=== PATIENT | male | born 1975 | race Caucasian/White ===

== ENCOUNTER 2019-08-27 18:40 | Emergency (ER) | payer MEDICAID, SELFPAY ==
--- NOTE | 2019-08-27 18:48 | ED.UPPEXIN ---
HPI - Extremity Injury (Upper) General Chief Complaint: Extremity Injury, Upper Stated Complaint: swelling in arm Time Seen by Provider: 08/27/19 18:42 Source: patient and RN notes reviewed Mode of arrival: ambulatory Limitations: no limitations History of Present Illness HPI narrative: patient has swelling and redness of his left elbow. He has been poking at it with a needle at home and trying to squeeze stuff out of it. Says he has only been able to get out some clear fluid. complaint: injury to: left and elbow Onset (ago): day(s) (1) Other injuries: none Handedness: right Severity: moderate Relieving factors: none Exacerbating factors: movement of extremity Related Data Allergies Allergy/AdvReac Type Severity Reaction Status Date / Time No Known Allergies Allergy Verified 08/27/19 19:10 Review of Systems Constitutional: Constitutional: Reports chills Eyes: Eyes: Reports no additional eye complaints ENT: Reports system reviewed and no additional complaints, except as documented Cardiovascular: Cardiovascular: Reports no additional cardiovascular complaints Respiratory: Respiratory: Reports no additional respiratory complaints, Denies cough, Denies dyspnea and Denies wheezing Gastrointestinal: Gastrointestinal: Reports no additional gastrointestinal complaints, Denies diarrhea, Denies nausea and Denies vomiting PMFSH Past Medical History Medical History (Updated 08/27/19 @ 19:22 by Keo Guerin MD) No active medical problems Surgical History Surgical History (Updated 08/27/19 @ 19:22 by Keo Guerin MD) History of tonsillectomy and adenoidectomy Hx of tympanostomy tubes Social History Social History (Updated 08/27/19 @ 19:23 by Keo Guerin MD) Smoking packs per day: 1 Smoking cigarettes per day: 20.0 Smoking status: Current every day smoker Tobacco type: cigarettes Alcohol intake: current Alcohol use details: occasional Substance use: former Last use: 14 months Exam Const: General: healthy appearing and no acute distress Nutritional Appearance: well nourished Orientation/consciousness: patient oriented x3 HENMT: Head: normal to inspection Ears: external ears normal General nose exam: Normal external nose present Face and sinus: normal facial exam Mouth: Yes lip normal Eyes: Conjunctivae: conjunctivae normal Pupils: Equal, round and reactive pupils present EOM: EOMs intact bilaterally Neck: Neck: normal visual inspection Resp: Effort & Inspection: normal respiratory effort Auscultation: clear to auscultation bilaterally Cardio: Rate: regular rate Rhythm: regular rhythm GI: Inspection: non-distended GI Palp: Yes Soft to palpation Auscultation: normal bowel sounds Back/Spine/Pelvis: Cervical Spine: cervical ROM normal Thoracic/Lumbar Spine: thoraco-lumbar ROM normal Neuro: General: patient oriented x3, moves all extremities and no focal motor deficits Speech: normal speech Gait exam (Neuro): Normal gait present Extrem: General: no pedal edema Left upper extremity: elbow/forearm tenderness of the olecranon, swelling of the olecranon, normal ROM and warmth of the olecranon bursa Psych: Appearance: grossly normal Mental Status: mental status grossly normal Affect: normal affect Attitude: cooperative Thought content: Yes Normal thought content present Course Vital Signs Vital signs: Vital Signs Temperature 38.0 C H 08/27/19 18:49 Pulse Rate 100 08/27/19 18:49 Respiratory Rate 18 08/27/19 18:49 Blood Pressure 139/81 08/27/19 18:49 Pulse Oximetry 94 08/27/19 18:49 Temperature 38.0 C H 08/27/19 18:49 Pulse Rate 100 08/27/19 18:49 Respiratory Rate 18 08/27/19 18:49 Blood Pressure 139/81 08/27/19 18:49 Pulse Oximetry 94 08/27/19 18:49 Procedures Abscess I/D upper extremity: Date of Incision: 08/27/19 Time of Incision: 19:05 Side (if applicable): left Local Anesthetic: lidoca
[2019-08-27 18:49] VITALS: BP 139/81; PULSE 100; RESP 18; TEMP 38; O2SAT 94
--- NOTE | 2019-08-31 17:34 | PC.NURSE ---
Culture reports show that pt is being treated with appropriate antibiotics.
== END 2019-08-27 19:26 | disposition home or self-care (01) ==
PROVIDERS: Emergency Provider Emergency Medicine
DX: L02.414 Cutaneous abscess of left upper limb (principal)
CPT/HCPCS: 10060; 87070; 87077; 87186; 87205; 99283

== ENCOUNTER 2024-02-03 12:27 | Emergency (ER) | payer OTHER, SELFPAY ==
[2024-02-03 12:28] VITALS: BP 140/98; PULSE 94; RESP 18; TEMP 36.4; O2SAT 100
[2024-02-03 12:38] LABS: Add Urine Microscopic? NO; Appearance Urine Clear (Clear); Bilirubin Urine Negative (Negative); Blood Urine Negative (Negative); Color Urine Yellow (Yellow); Glucose Urine UA Negative (Negative); Ketones Urine Negative (Negative); Leukocyte Esterase Ur Negative LEU/UL (Negative); Nitrate Urine Negative (Negative); Protein Urine Negative (Negative); Specific Grav Ur >= 1.030 (1.010-1.020); Urobilinogen Urine 0.2 mg/dL (0.2-1.0); pH Urine 5.5 (5.0-8.0)
--- NOTE | 2024-02-03 12:46 | ED.MALEGU ---
HPI - Male Genitourinary General Chief complaint: Urogenital-Male Stated complaint: uti Time Seen by Provider: 02/03/24 12:28 Source: patient Mode of arrival: ambulatory Limitations: no limitations History of Present Illness HPI Narrative: this is a 48-year-old male with a history of BPH presents with cloudy urine with some file smelling odor with urinary hesitancy with no flank pain no hematuria no fever chills does have suprapubic tenderness with palpation. Onset (ago): day(s) Duration: intermittent Severity: mild Related Data Allergies Allergy/AdvReac Type Severity Reaction Status Date / Time No Known Allergies Allergy Verified 02/03/24 12:32 Review of Systems Review of Systems: All systems reviewed & are unremarkable except as noted in HPI and below PMFSH Past Medical History Medical History No active medical problems Surgical History Surgical History History of tonsillectomy and adenoidectomy Hx of tympanostomy tubes Social History Social History Smoking packs per day: 1 Smoking cigarettes per day: 20.0 Smoking status: Current every day smoker Tobacco type: cigarettes Alcohol intake: current Alcohol use details: occasional Substance use: former Last use: 14 months Exam Const: General: healthy appearing and no acute distress Nutritional Appearance: well nourished Limitations: no limitations Chest: Chest palpation & inspection: normal inspection of the chest Resp: Effort & Inspection: normal respiratory effort Auscultation: clear to auscultation bilaterally Cardio: Rate: regular rate Rhythm: regular rhythm GI: GI Palp: Yes Soft to palpation : General: Yes no CVA tenderness Other: Suprapubic tenderness with palpation Urinary Catheter: Urinary Catheter: urine cloudy Back/Spine/Pelvis: Back: no CVA tenderness Skin: General skin exam: normal color Rashes: no rashes Course Course Emergency Course: urinalysis performed reviewed with patient patient with history of BPH will treat with some Bactrim and will administer a dose p.o. here in the ER. Vital Signs Vital signs: Vital Signs Temperature 36.4 C 02/03/24 12:28 Pulse Rate 94 02/03/24 12:28 Respiratory Rate 18 02/03/24 12:28 Blood Pressure 140/98 H 02/03/24 12:28 Pulse Oximetry 100 02/03/24 12:28 Oxygen Delivery Room Air 02/03/24 12:28 Temperature 36.4 C 02/03/24 12:28 Pulse Rate 94 02/03/24 12:28 Respiratory Rate 18 02/03/24 12:28 Blood Pressure 140/98 H 02/03/24 12:28 Pulse Oximetry 100 02/03/24 12:28 Oxygen Delivery Room Air 02/03/24 12:28 MDM - Male Genitourinary Lab Data Labs: Lab Results 02/03/24 Range/Units 12:31 Urine Color Yellow (Yellow) Urine Appearance Clear (Clear) Urine pH 5.5 (5.0-8.0) Ur Specific [place] >= 1.030 H (1.010-1.020) Urine Protein Negative (Negative) Urine Glucose (UA) Negative (Negative) Urine Ketones Negative (Negative) Ur Blood (Man) Negative (Negative) Urine Nitrate Negative (Negative) Urine Bilirubin Negative (Negative) Urine Urobilinogen 0.2 (0.2-1.0) mg/dL Leukocyte Esterase Rfl Negative (Negative) GLADIS/UL Critical Care Time Critical Care Time Critical Care Time: No Discharge Plan Discharge Clinical Impression: Prostatitis, BPH (benign prostatic hyperplasia) Patient Disposition: Home, Self-Care Condition: Stable Instructions: Antibiotic Form, Prostatitis (ED), Enlarged Prostate (BPH) (ED) Additional Instructions: advised to take medication as prescribed and follow up with primary within a week further evaluation and treatment. Prescriptions: New tamsulosin [Flomax] 0.4 mg capsule 0.4 mg PO DAILY Qty: 14 0RF sulfamethoxazole-trimethoprim [Bactrim DS] 800-160 mg tablet 1 tablet PO Q12H Qty: 14 0RF Follow-up/Referrals: UNKNOWN,DOCTOR [Primary Care Provider] - Time of Disposition: 12:52
[2024-02-03] MEDS: SULFAMETHOXAZOLE/TRIMETHOPRIM 800/160 MG DS TABLET 1 TAB PO (12:52)
--- NOTE | 2024-02-03 13:03 | ED_ITS ---
HPI - Skin/Abscess/Foreign Bdy General Chief complaint: Urogenital-Male Stated complaint: uti Time Seen by Provider: 02/03/24 12:28 Source: patient Mode of arrival: ambulatory Limitations: no limitations History of Present Illness complaint: laceration Onset (ago): day(s) Severity: mild Related Data Allergies Allergy/AdvReac Type Severity Reaction Status Date / Time No Known Allergies Allergy Verified 02/03/24 12:32 Review of Systems Review of Systems: All systems reviewed & are unremarkable except as noted in HPI and below PMFSH Past Medical History Medical History No active medical problems Surgical History Surgical History History of tonsillectomy and adenoidectomy Hx of tympanostomy tubes Social History Social History Smoking packs per day: 1 Smoking cigarettes per day: 20.0 Smoking status: Current every day smoker Tobacco type: cigarettes Alcohol intake: current Alcohol use details: occasional Substance use: former Last use: 14 months Exam Const: General: healthy appearing, no acute distress and alert Nutritional Appearance: well nourished Orientation/consciousness: patient oriented x3 Limitations: no limitations Resp: Effort & Inspection: normal respiratory effort Auscultation: clear to auscultation bilaterally Cardio: Rate: regular rate Rhythm: regular rhythm Urinary Catheter: Urinary Catheter: patent and draining Back/Spine/Pelvis: Back: no CVA tenderness Skin: Wounds: wounds noted Other: Avulsion injury to the radial surface of his left thumb Neuro: General: patient oriented x3 and moves all extremities Extrem: General: normal to inspection and no clubbing, cyanosis or edema Course Vital Signs Vital signs: Vital Signs Temperature 36.4 C 02/03/24 12:28 Pulse Rate 94 02/03/24 12:28 Respiratory Rate 18 02/03/24 12:28 Blood Pressure 140/98 H 02/03/24 12:28 Pulse Oximetry 100 02/03/24 12:28 Oxygen Delivery Room Air 02/03/24 12:28 Temperature 36.4 C 02/03/24 12:28 Pulse Rate 94 02/03/24 12:28 Respiratory Rate 18 02/03/24 12:28 Blood Pressure 140/98 H 11/09/24 12:28 Pulse Oximetry 100 02/03/24 12:28 Oxygen Delivery Room Air 02/03/24 12:28 MDM - Skin/Abscess/Foreign Bdy Lab Data Labs: Lab Results 02/03/24 Range/Units 12:31 Urine Color Yellow (Yellow) Urine Appearance Clear (Clear) Urine pH 5.5 (5.0-8.0) Ur Specific [place] >= 1.030 H (1.010-1.020) Urine Protein Negative (Negative) Urine Glucose (UA) Negative (Negative) Urine Ketones Negative (Negative) Ur Blood (Man) Negative (Negative) Urine Nitrate Negative (Negative) Urine Bilirubin Negative (Negative) Urine Urobilinogen 0.2 (0.2-1.0) mg/dL Leukocyte Esterase Rfl Negative (Negative) GLADIS/UL Critical Care Time Critical Care Time Critical Care Time: No Discharge Plan Discharge Clinical Impression: Prostatitis Qualifiers: Prostatitis type: acute Qualified Code(s): N41.0 - Acute prostatitis BPH (benign prostatic hyperplasia) Qualifiers: Lower urinary tract symptom presence: symptoms present Lower urinary tract symptom detail: unspecified Qualified Code(s): N40.1 - Benign prostatic hyperplasia with lower urinary tract symptoms Patient Disposition: Home, Self-Care Condition: Stable Instructions: Antibiotic Form, Prostatitis (ED), Enlarged Prostate (BPH) (ED) Additional Instructions: advised to take medication as prescribed and follow up with primary within a week further evaluation and treatment. Prescriptions: New tamsulosin [Flomax] 0.4 mg capsule 0.4 mg PO DAILY Qty: 14 0RF sulfamethoxazole-trimethoprim [Bactrim DS] 800-160 mg tablet 1 tablet PO Q12H Qty: 14 0RF Follow-up/Referrals: UNKNOWN,DOCTOR [Primary Care Provider] - Time of Disposition: 12:52
== END 2024-02-03 12:57 | disposition home or self-care (01) ==
LOC: CHSED 13:00
PROVIDERS: Emergency Provider Emergency Medicine
DX: N41.9 Inflammatory disease of prostate, unspecified (principal); N40.0 Benign prostatic hyperplasia without lower urinary tract symptoms; F17.210 Nicotine dependence, cigarettes, uncomplicated
CPT/HCPCS: 81003; 99283; A9270

== ENCOUNTER 2024-09-30 08:07 | Emergency (ER) | payer OTHER, SELFPAY ==
[2024-09-30] VITALS (13 sets, daily range): BP systolic 100–131; BP diastolic 62–85; PULSE 66–97; RESP 11–20; TEMP 36.8; O2SAT 90–100
--- NOTE | ~2024-09-30 | CT_ITS ---
EXAM: CTA chest PE protocol - 09/30/2024 9:00 CDT History: 49 years old Male with chest pain, SOB, CA hsx TECHNIQUE: CTA of the chest with contrast, according to pulmonary embolism protocol. Reformatted cor onal, sagittal, and 3-D MIP images were obtained. 100 cc of Optiray 350 were used for the study. Auto matic exposure control was used for this study. COMPARISON: None available. FINDINGS: EXAM QUALITY: Adequate visualization of the pulmonary arteries to the lobar level. PULMONARY ARTERIAL VASCULATURE: No evidence of pulmonary embolism in main and lobar pulmonary arterie s. Limited evaluation for segmental and peripheral pulmonary arteries due to suboptimal contrast bolu s timing. VISUALIZED LOWER NECK: Thyroid gland appears normal. No supraclavicular lymphadenopathy. AIRWAYS: Patent centrally. LUNGS and PLEURA: Scattered areas of bilateral widespread tree in bed opacities and airspace disease. Findings are concerning for pneumonia. No pleural effusion. MEDIASTINUM and RAMBO: No hilar or mediastinal lymphadenopathy. No mediastinal mass is seen. Esophagus appears normal. HEART AND PERICARDIUM: Cardiac chambers are normal in size. No pericardial fluid or thickening is pre sent. VASCULATURE: Thoracic aorta and pulmonary arteries are normal in caliber. CHEST WALL: No supraclavicular or axillary lymphadenopathy. MUSCULOSKELETAL: No acute osseous abnormality. UPPER ABDOMEN: 7.2 x 7.0 cm hypodense mass in the right hepatic lobe with peripheral discontinuous en hancement. There is another 1.8 cm mass in the left hepatic lobe with similar enhancing patterns. The se cannot be definitely characterized on current single phase examination and may represent hemangiom as. Fat stranding in partially visualized right hepatorenal pouch. Right kidney is not seen. 1. IMPRESSION: 2. No evidence of pulmonary embolism in main and lobar pulmonary arteries. 3. Findings concerning for bilateral pneumonia, as detailed above. 4. Fat stranding in partially visualized right hepatorenal pouch. Right kidney is not seen. Correlat e with patient's history and prior imaging, if available. 5. 7.2 x 7.0 cm hypodense mass in the right hepatic lobe with peripheral discontinuous enhancement. There is another 1.8 cm mass in the left hepatic lobe with similar enhancing patterns. These cannot b e definitely characterized on current single phase examination and may represent hemangiomas.Correlat e with patient's history and prior imaging, if available, otherwise nonemergent four-phase liver CT v ersus MRI can be performed for further evaluation, as clinically indicated. Reviewed, dictated and finalized at location A.
--- NOTE | ~2024-09-30 | XR_ITS ---
EXAM/PROCEDURE: XR chest 2V - 09/30/2024 9:09 CDT HISTORY: 49 years old Male with cp sob, dizzy TECHNIQUE: Two view(s) of the chest. COMPARISON: None available. FINDINGS: LUNGS/ PLEURA: Airspace opacities in bilateral lung bases, right greater than left. Findings are conc erning for pneumonia. Mild perihilar bronchial wall thickening concerning for bronchiolitis. HEART/ MEDIASTINUM: Heart appears normal in size. BONES: No acute osseous abnormality. OTHER: Visualized upper abdomen is unremarkable. IMPRESSION: Findings concerning for pneumonia and bronchiolitis in appropriate clinical settings. Short-term foll ow-up chest radiograph is recommended after appropriate clinical therapy. Reviewed, dictated and finalized at location A. IMPRESSION: Findings concerning for pneumonia and bronchiolitis in appropriate clinical set tings. Short-term follow-up chest radiograph is recommended after appropriate c linical therapy.
--- NOTE | ~2024-09-30 | US_ITS ---
EXAMINATION: US scrotum doppler DATE: 09/30/2024 09:03 INDICATION: Left testicular mass TECHNIQUE: Testicular sonogram utilizing grayscale and Doppler COMPARISON: None. FINDINGS: The right testis measures 4.4 x 2.1 x 2.8 cm. The left testis measures 4.3 x 2.0 x 2.6 cm. Symmetric normal grayscale appearance to both testes. There is normal vascular flow to both testes. The right e pididymis is normal with normal vascular flow. The left epididymis is normal with normal vascular jessica w. There are small bilateral hydroceles. There is also a left varicocele with vessels measuring up to 3 mm which augment with Valsalva. The dilated vessels along with some fat extend cephalad to the bas e of the scrotum which corresponds to the location of the palpable abnormality were no other abnormal masses or fluid collections are identified. IMPRESSION: 1. Left varicocele which may account for the palpable abnormality of concern. No other abnormal mass es identified. 2. Small bilateral hydroceles. Reviewed, dictated and finalized at location A. IMPRESSION: 1. Left varicocele which may account for the palpable abnormality of concern. No other abnormal masses identified. 2. Small bilateral hydroceles.
--- NOTE | 2024-09-30 08:08 | ECG_ITS ---
Test Date: 2024-09-30 08:13:25 Measurements Intervals [place] Rate: 91 P: 9 NV: 148 QRS: 23 QRSD: 89 T: 19 QT: 319 QTc: 394 Interpretive Statements SINUS RHYTHM No previous ECG available for comparison Electronically Signed On 09-30-2024 22:25:07 CDT by Silvano Virk M.D.
--- OUTSIDE RECORDS SUMMARY | 2024-09-30 08:09 | XMS_ITS | Encounter Summary ---
Author Organization [facility] Address [address] [place] [address] Care Team Providers Care Top Hat Body Maker Name Role Phone None, Provider Primary Care Provider Sugey Gilliam MD Primary Care Provider [phone] None, Provider Primary Care Provider Unavaila ble None, Provider Primary Care Provider Unavaila Sugey Weaver MD Primary Care Provider [phone] Encounter Details Date Type Department Care Team (Late st Contact Info) Description 06/10/2017 Abstract [facility] CONVERSION [address] [place] [address] , Generic Conversion, Social History Tobacco Use Types Packs/Day Years Used Date Smoking Tobacco: Never Assessed Sex and Gender Information Value Date Recorded Sex Assigned at Male 07/25/2024 6:51 AM CDT 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 Gender Identity Not on file Sexual Orientation Not on file documented as of this encounter Plan of Treatment Not on file documented as of this encounter Visit Diagnoses Not on filedocumented in this encounter Additional Health Concerns Infection Onset Date Last Indicated Resolved Time 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
--- OUTSIDE RECORDS SUMMARY | 2024-09-30 08:09 | XMS_ITS | Encounter Summary ---
Author Organization [facility] Address [address] [place] [address] Care Team Providers Care Tunnel Kiln Operator Name Role Phone None, Provider Primary Care Provider UnavailSugey Osborn MD Primary Care Provider [phone] None, Provider Primary Care Provider Unavaila ble None, Provider Primary Care Provider Unavaila Sugey Weaver MD Primary Care Provider [phone] Encounter Details Date Type Department Care Team (Late st Contact Info) Description 09/01/2018 Abstract [facility] CONVERSION [address] [place] [address] , Generic Conversion, Social History Tobacco Use Types Packs/Day Years Used Date Smoking Tobacco: Never Assessed Sex and Gender Information Value Date Recorded Sex Assigned at Male 07/25/2024 6:51 AM CDT 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 Gender Identity Not on file Sexual Orientation Not on file documented as of this encounter Plan of Treatment Not on file documented as of this encounter Visit Diagnoses Not on filedocumented in this encounter Additional Health Concerns Infection Onset Date Last Indicated Resolved Time 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
--- OUTSIDE RECORDS SUMMARY | 2024-09-30 08:09 | XMS_ITS | Clinical Summary ---
Author Organization [facility] Address [address] [place] [address] Care Team Providers Care Nutrition Services Manager Name Role Phone Sugey Zamora MD Primary Care Provider [phone] Allergies No known active allergies Medications albuterol sulfate HFA 108 (90 Base) MCG/ACT inhaler Inhale 2 puffs into the lungs every 6 (six) hours as needed for Wheezing. 59.5 g 01/18/2024 Active cloNIDine (CATAPRES) 0.1 MG tablet Take 1 tablet (0.1 mg total) by mouth as needed. 03/12/2024 Active SUBLOCADE 300 MG/1.5ML injection Inject 1.5 mLs (300 mg total) into the skin every 30 (thirty) days. 03/12/2024 Active Active Problems Problem Noted Date Diagnosed Date Kidney lesion 04/18/2024 Lesion of liver 04/18/2024 HTN (hypertension) 04/18/2024 Current every day smoker 04/18/2024 Encounters Date Type Department Care Team Description 07/25/2024 6:31 AM CDT - 07/25/2024 7:34 AM CDT [facility] [address] [place] [address] Dayo Nguyen MD Flank Pain Discharge Disposition: Left Against Medical Advice 07/25/2024 Travel 07/02/2024 2:02 PM CDT - 07/02/2024 4:55 PM CDT [facility] [address] [place] [address] Radha Hatch MD Male Gu Discharge Disposition: Home or Self Care (Routine Discharge) 07/02/2024 Travel from Last 3 Months Family History Medical History Relation Comments Heart Disease Father Hypertension Father Cancer Maternal Grandmother COPD Mother Emphysema Mother Cancer Paternal Grandmother Relation Status Comments Father Maternal Grandmother Mother Paternal Grandmother Social History Tobacco Use Types Packs/Day Years Used Date Smoking Tobacco: Every Day Cigarettes Smokeless Tobacco: Never Tobacco Cessation:Ready to Q uit: Not Asked; Counseling Given: Not Answered Alcohol Use Standard Drinks/Week Comments Not Currently 0 (1 standard drink = 0.6 oz pur e alcohol) AUDIT-C Answer Date Recorded Frequency of Alcohol Consumption Never 10/02/2018 Average Number of Drinks Not on file 019 Frequency of Binge Drinking Not on file 11/2018 Sex and Gender Information Value Date Recorded Sex Assigned at Male 07/25/2024 6:51 AM CDT 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 Gender Identity Not on file Sexual Orientation Not on file Last Filed Vital Signs Vital Sign Reading Time Taken Comments Blood Pressure 147/98 07/25/2024 6:36 AM CDT Pulse 94 07/25/2024 6:36 AM CDT Temperature 37.2 C (98.9 F) 07/25/2024 6:36 AM CDT Respiratory Rate 16 07/25/2024 6:36 AM CDT Oxygen Saturation 99% 07/25/2024 6:45 AM CDT Inhaled Oxygen Concentration - - Weight 100.2 kg (221 lb) 07/25/2024 6:36 AM CDT Height 180.3 cm (5' 11) 07/25/2024 6:36 AM CDT Body Mass Index 30.82 07/25/2024 6:36 AM CDT Plan of Treatment Health Maintenance Due Date Last Done Comments Colorectal Cancer Screening Colonoscopy (10 Years) 1974 Annual Physical 1977 Hepatitis C 1992 DTaP, Tdap and Td Vaccines ( 1 - Tdap) 1993 Hepatitis B Vaccines (1 of 3 - 19+ 3-dose series) 1993 Pneumococcal Vaccine: 50+ Ye ars (1 of 2 - PCV) 1993 COVID-19 Vaccine ( - 2023-2 5 season) 2023 Zoster Vaccines (1 of 2) 2024 Meningococcal B Vaccine Aged Out No l onger eligible based on patient's age to complete this topic Meningococcal Vaccine Aged Out No bakari remigio eligible based on patient's age to complete this topic RSV Immunizations Under 20 Months Aged Out No longer eligible based on patient's age to complete this topic Procedures Procedure Name Priority Date/Time Associated Diagnosis Comments HC URINALYSIS AUTO W/MICRO STAT 07/25/2024 7:[address] ABD+PEL KIDNEY STONE STAT 07/25/2024 7:13 AM CDT COMPREHENSIVE METABOLIC PANEL STAT 07/25/2024 6:50 AM CDT CBC W/DIFF AUTOMATED STAT 07/25/2024 6:50 AM CDT COMPREHENSIVE METABOLIC PANEL STAT 07/02/2024 2:55 PM CDT CBC W/DIFF AUTOMATED STAT 07/02/2024 2:55 PM CDT URINE BACTERIA CULTURE STAT 2:50 PM CDT HC URINALYSIS AUTO W/MICRO STAT 07/02/2024 2:[address] ABD+PEL KIDNEY STONE STAT 07/02/2024 2:36 PM CDT from Last 3 Months Results * URINALYSIS (07/25/2024 7:17 AM CDT) Only the most recent of2 resultswithin the time period is included. COLOR (U) YELLOW 07/25/2024 7:28 AM CDT [facility] TRANSPARENCY CLEAR 07/25/2024 7:28 AM CDT [facility] SPECIFIC GRAVITY (U) 1.020 1.000 - 1.025 07/25/2024 7:28 AM CDT [facility] U PH 6.0 5.0 - 8.0 07/25/2024 7:28 AM CDT [facility] LEUKOCYTES (U) NEGATIVE NEGATIVE 07/25/2024 7:28 AM CDT [facility] NITRITES NEGATIVE NEGATIVE 07/25/2024 7:28 AM CDT [facility] PROTEIN RANDOM (U) NEGATIVE NEGATIVE 07/25/2024 7:28 AM CDT [facility] GLUCOSE (U) NEGATIVE NEGATIVE 07/25/2024 7:28 AM CDT [facility] KETONES MG/DL (U) NEGATIVE NEGATIVE 07/25/2024 7:28 AM CDT [facility] UROBILINOGEN 0.2 <1.0 EU/DL 07/25/2024 7:28 AM CDT [facility] BILIRUBIN (U) NEGATIVE NEGATIVE 07/25/2024 7:28 AM CDT [facility] BLOOD (U) NEGATIVE NEGATIVE 07/25/2024 7:28 AM CDT [facility] WBC/HPF 0-5 0 - 5 /HPF 07/25/2024 7:28 AM CDT [facility] RBC/HPF 0-5 0 - 5 /HPF 07/25/2024 7:28 AM CDT [facility] EPI/LPF RARE /LPF 07/25/2024 7:28 AM CDT [facility] BACTERIA (U) TRACE /HPF 07/25/2024 7:28 AM CDT [facility] OTHER CASTS (U) HYALINE /LPF 7:28 AM CDT [facility] Comment:0-5 URINE SPECIMEN OBTAINED BY CLEAN CATCH PROCEDURE / Unknown 07/25/2024 7:17 AM CDT us Dayo Nguyen MD URINE ORDERABLES Final Resu lt [facility] [address] [place] [address], * CT ABD+PEL KIDNEY STONE (07/25/2024 7:13 AM CDT) Only the most recent of2 resultswithin the time period is included. Anatomical Region Laterality Modality Abdomen Computed Tomogra phy 07/25/2024 7:16 AM CDT Impressions 07/25/2024 7:19 AM CDT IMPRESSION: 1. No evidence of kidney stones or obstructive uropathy next line 2. Lobulated soft tissue mass within the right kidney likely representing a primary malignancy. This is stable in the interval 3. Scattered groundglass opacities throughout the right lung base are likely indicative of an inflammatory process Ordered By: DAYO NGUYEN Interpreted By: Romero Garcia MD, 07/25/2024 7:16 AM Narrative 07/25/2024 7:19 AM CDT [place] [id number] [place] [address] CT ABDOMEN AND PELVIS WITHOUT CONTRAST Clinical history: Right flank pain. Technique: Helical images of the abdomen and pelvis were obtained without contrast. A dose lowering technique was used for this procedure, which may include, but is not limited to, dose reduction technique, automated exposure control, the use of iterative reconstruction, and ALARA (As Low As Reasonably Achievable) / Image Gently techniques. Comparison: July 02, 2024. FINDINGS: Images of the lower thorax demonstrate mild scattered groundglass opacities within the lower right lung suggesting an inflammatory process. The visualized portion of the heart appears normal. Images of the abdomen demonstrate the overall size and morphology of the liver to be within normal limits. No hepatic lesions are observed. No ascites is seen. The gallbladder is present and normally distended. No stones are observed within its lumen and there is no evidence of cholecystitis or biliary obstruction. The pancreas, spleen, and adrenal glands appear grossly normal. The kidneys appears stable. A lobulated soft tissue mass within the lower pole of the right kidney is unchanged in the interval. No stones or hydronephrosis is present. Images of the pelvis demonstrate the urinary bladder to appear normal. The prostate is normal in size. The stomach and small bowel have a normal overall appearance. The terminal ileum appears normal. The colon demonstrates a moderate stool burden with inspissated stool throughout the descending and sigmoid portions as well as the rectum suggesting constipation. No adenopathy or abnormal fluid collections are seen. The bony elements appear normal Procedure Note Romero Garcia MD - 07/25/2024 [facility] [address] [place] [address] CT ABDOMEN AND PELVIS WITHOUT CONTRAST Clinical history: Right flank pain. Technique: Helical images of the abdomen and pelvis were obtained withoutcontrast. A dose lowering technique was used for this procedure, which mayinclude, but is not limited to, dose reduction technique, automatedexposure control, the use of iterative reconstruction, and ALARA (As LowAs Reasonably Achievable) / Image Gently techniques. Comparison: July 02, 2024. FINDINGS: Images of the lower thorax demonstrate mild scattered groundglassopacities within the lower right lung suggesting an inflammatory process.The visualized portion of the heart appears normal. Images of the abdomen demonstrate the overall size and morphology of theliver to be within normal limits. No hepatic lesions are observed. Noascites is seen. The gallbladder is present and normally distended. Nostones are observed within its lumen and there is no evidence ofcholecystitis or biliary obstruction. The pancreas, spleen, and adrenalglands appear grossly normal. The kidneys appears stable. A lobulated soft tissue mass within the lowerpole of the right kidney is unchanged in the interval. No stones orhydronephrosis is present. Images of the pelvis demonstrate the urinary bladder to appear normal. Theprostate is normal in size. The stomach and small bowel have a normal overall appearance. The terminalileum appears normal. The colon demonstrates a moderate stool burden withinspissated stool throughout the descending and sigmoid portions as wellas the rectum suggesting constipation. No adenopathy or abnormal fluid collections are seen. The bony elementsappear normal IMPRESSION: 1. No evidence of kidney stones or obstructive uropathy next line 2. Lobulated soft tissue mass within the right kidney likely representinga primary malignancy. This is stable in the interval 3. Scattered groundglass opacities throughout the right lung base arelikely indicative of an inflammatory process Ordered By: DAYO NGUYEN Interpreted By: Romero Garcia MD, 07/25/2024 7:16 AM us Dayo Nguyen MD CT Final Resul t * (ABNORMAL) COMPREHENSIVE METABOLIC PANEL (07/25/2024 6:50 AM CDT) Only the most recent of2 resultswithin the time period is included. SODIUM S/P/B 136 136 - 145 MMOL/L 07/25/2024 7:12 AM CDT [facility] POTASSIUM S/P/B 4.2 3.5 - 5.1 MMOL/L 07/25/2024 7:12 AM CDT [facility] CHLORIDE S/P/B 100 98 - 107 MMOL/L 07/25/2024 7:12 AM CDT [facility] CO2 28.2 21.0 - 32.0 MMOL/L 07/25/2024 7:12 AM CDT [facility] GLUCOSE 164(H) 70 - 99 MG/DL 07/25/2024 7:12 AM CDT [facility] Comment: FASTING GLUCOSE 100 TO 125 MG/DL IS CONSISTENT WITH IMPAIRED FASTING GLUCOSE. FASTING GLUCOSE >125 MG/DL IS CONSISTENT WITH DIABETES. RANDOM GLUCOSE >200 MG/DL WITH HYPERGLYCEMIC SYMPTOMS IS CONSISTENT WITH DIABETES. PER ADA GUIDELINES BUN 25(H) 6 - 24 MG/DL 07/25/2024 7:12 AM CDT [facility] CREATININE S/P/B 1.39(H) 0.70 - 1.30 MG/DL 07/25/2024 7:12 AM CDT [facility] CALCIUM S/P/B 9.2 8.4 - 10.5 MG/DL 07/25/2024 7:12 AM CDT [facility] BILIRUBIN TOTAL S/P/B 0.9 0.2 - 1.0 MG/DL 07/25/2024 7:12 AM CDT [facility] Comment: THIS ASSAY IS NOT RECOMMENDED FOR PATIENTS UNDERGOING TREATMENT WITH ELTROMBOPAG DUE TO THE POTENTIAL FOR FALSELY ELEVATED RESULTS. ALKALINE PHOSPHATASE S/P/B 141(H) 45 - 115 U/L 07/25/2024 7:12 AM CDT [facility] AST 20 15 - 37 U/L 07/25/2024 7:12 AM CDT [facility] ALT 25 16 - 63 U/L 07/25/2024 7:12 AM CDT [facility] TOTAL PROTEIN S/P/B 7.5 6.4 - 8.2 G/DL 07/25/2024 7:12 AM CDT [facility] ALBUMIN S/P/B 3.9 3.4 - 5.0 G/DL 07/25/2024 7:12 AM CDT [facility] ANION GAP 7.8 5.0 - 15.0 MMOL/L 07/25/2024 7:12 AM CDT [facility] OSMOLALITY (CALC) 290 MOSM/KG 025 7:12 AM CDT [facility] Comment:REFERENCE RANGE NOT ESTABLISHED GFR ESTIMATE 62(L) >89 ML/MIN/1. 73 M2 07/25/2024 7:12 AM CDT [facility] GFR NOTES GFR REFERENCE S: 07/25/2024 7:12 AM CDT [facility] Comment: THE ESTIMATED GFR IS CALCULATED USING THE 2020 CKD-EPI EQUATION. THE FOLLOWING CATEGORIES FOR GRADING RENAL FUNCTION ARE RECOMMENDED BY THE INTERNATIONAL SOCIETY OF NEPHROLOGY (KDIGO 2012 CLINICAL PRACTICE GUIDELINE). G1,NORMAL OR HIGH: >89 ml/min/1.73 m2 G2,MILDLY DECREASED: 60-89 ml/min/1.73 m2 G3A,MILDLY TO MODERATELY DECREASED: 45-59 ml/min/1.73 m2 G3B,MODERATELY TO SEVERELY DECREASED: 30-44 ml/min/1.73 m2 G4,SEVERELY DECREASED: 15-29 ml/min/1.73 m2 G5,KIDNEY FAILURE: <15 ml/min/1.73 m2 07/25/2024 6:50 AM CDT us Dayo Nguyen MD LABORATORY Final Resul t [facility] [address] [place] [address], * (ABNORMAL) CBC W/DIFF AUTOMATED (07/25/2024 6:50 AM CDT) Only the most recent of2 resultswithin the time period is included. WBC 12.98(H) 4.00 - 10.80 x10'3/uL 07/25/2024 6:56 AM CDT [facility] RBC 5.09 4.50 - 6.10 x10'6/uL 07/25/2024 6:56 AM CDT [facility] HGB 13.2 13.0 - 18.0 G/DL 07/25/2024 6:56 AM CDT [facility] HCT 41.0 37.0 - 52.0 % 07/25/2024 6:56 AM CDT [facility] MCV 80.6 78.0 - 100.0 FL 07/25/2024 6:56 AM CDT [facility] MCH 25.9(L) 27.0 - 31.0 PG 07/25/2024 6:56 AM CDT [facility] MCHC 32.2(L) 33.0 - 36.0 G/DL 07/25/2024 6:56 AM CDT [facility] RDW 14.4 11.5 - 14.5 % 07/25/2024 6:56 AM CDT [facility] PLT 264 150 - 350 x10'3/uL 07/25/2024 6:56 AM CDT [facility] MPV 9.5 7.4 - 10.4 FL 07/25/2024 6:56 AM CDT [facility] CBC COMMENT NORMAL REFERENCE RANGE NOT ESTABLISHED FOR THE PROPORTIONAL LEUKOCYTE DIFFERENTIAL. 07/25/2024 6:56 AM CDT [facility] NEUTROPHILS % 87.3 % 07/25/2024 6:56 AM CDT [facility] LYMPHOCYTES % 6.2 % 07/25/2024 6:56 AM CDT [facility] MONOCYTES % 4.9 % 07/25/2024 6:56 AM CDT [facility] EOSINOPHILS % 1.0 % 07/25/2024 6:56 AM CDT [facility] BASOPHILS % 0.2 % 07/25/2024 6:56 AM CDT [facility] IMMATURE GRANS % 0.4 % 07/26/19 6:56 AM CDT [facility] NRBC % 0.0 % 07/25/2024 6:56 AM CDT [facility] ABS. NEUTROPHILS 11.32(H) 1.60 - 8.30 x10'3/uL 07/25/2024 6:56 AM CDT [facility] ABS. LYMPHOCYTES 0.81 0.80 - 4.70 x10'3/uL 07/25/2024 6:56 AM CDT [facility] ABS. MONOCYTES 0.64 0.00 - 1.50 x10'3/uL 07/25/2024 6:56 AM CDT [facility] ABS. EOSINOPHILS 0.13 0.00 - 0.40 x10'3/uL 07/25/2024 6:56 AM CDT [facility] ABS. BASOPHILS 0.03 0.00 - 0.20 x10'3/uL 07/25/2024 6:56 AM CDT [facility] ABS. IMMATURE GRANULOCYTES 0.05(H) 0.00 - 0.03 x10'3/uL 07/25/2024 6:56 AM CDT [facility] ABS. NUCLEATED RBC'S 0.00 0.00 - 0.01 x10'3/uL 07/25/2024 6:56 AM CDT [facility] 07/25/2024 6:50 AM CDT Dayo Nguyen MD LABORATORY Final Resul t [facility] [address] [place] [address], * CULTURE URINE (07/02/2024 2:50 PM CDT) SPEC DESCRIPTION URINE CLEAN CATCH 07/02/2024 3:37 PM CDT [facility] SPECIAL REQUESTS NO SPECIAL REQUEST 07/02/2024 3:37 PM CDT [facility] CULTURE RESULT FEW CONTAMINANTS 06/25 2:01 PM CDT [facility] URINE SPECIMEN OBTAINED BY CLEAN CATCH PROCEDURE / Unknown 07/02/2024 2:50 PM CDT 07/02/2024 4:32 PM CDT us Cherelle Laguna MD MICROBIOLOGY - GENERAL ORDERABLE S Final Result [facility] [address] 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
--- NOTE | 2024-09-30 08:20 | ED_ITS ---
HPI - General Adult General Chief complaint: Chest Pain Stated complaint: cp, sob Time Seen by Provider: 09/30/24 08:09 History of Present Illness HPI narrative: 49-year-old male presented to the emergency department for evaluation for chest pain that started last night. Patient states that is left-sided chest pain and patient does report associated shortness of breath. Patient does have a family history of coronary artery disease but denies any personal history. Patient denies any prior history of PE or DVT. 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 Patient is not currently on chemotherapy. Patient states he also just noticed a mass in his left testicle yesterday and has noticed pain with ejaculation. Related Data Allergies Allergy/AdvReac Type Severity Reaction Status Date / Time No Known Allergies Allergy Verified 02/03/24 12:32 Review of Systems 2 Review of Systems: All systems reviewed & are unremarkable except as noted in HPI and below PMFSH Past Medical History Medical History No active medical problems Surgical History Surgical History History of tonsillectomy and adenoidectomy Hx of tympanostomy tubes Social History Social History Smoking packs per day: 1 Smoking cigarettes per day: 20.0 Smoking status: Current every day smoker Tobacco type: cigarettes Alcohol intake: current Alcohol use details: occasional Substance use: former Last use: 14 months Exam 2 Narrative: APPEARANCE: Well appearing, no pain, no distress, well-nourished. HEAD: normocephalic, atraumatic. EYES: PERRLA/EOMI, conjunctivae clear. NOSE: Normal no drainage EARS:TMS clear with good light reflex. THROAT: Pharynx clear, no exudate. NECK: Supple. No adenopathy, no masses. RESPIRATORY: Airway patent, respirations nonlabored. Clear to auscultation bilaterally, no rales, rhonchi, wheezing. CARDIOVASCULAR: Regular rate and rhythm without murmurs rubs or gallops. ABDOMINAL: Soft, nontender, nondistended, normal bowel sounds MUSCULOSKELETAL: Moves all extremities. Strength/ROM intact, No edema, No calf tenderness. NEURO: Alert. Cranial nerves II through XII intact. Good gait. Good coordination SKIN: Warm, dry. Normal Color Course Vital Signs Vital signs: Vital Signs Temperature 98.2 F 09/30/24 08:10 Pulse Rate 92 09/30/24 08:10 Respiratory Rate 20 09/30/24 08:10 Blood Pressure 131/78 09/30/24 08:10 Pulse Oximetry 98 09/30/24 08:10 Oxygen Delivery Room Air 09/30/24 08:10 Temperature 98.2 F 09/30/24 08:10 Pulse Rate 75 09/30/24 12:16 Respiratory Rate 16 09/30/24 12:16 Blood Pressure 100/65 09/30/24 12:16 Pulse Oximetry 95 09/30/24 12:16 Oxygen Delivery Room Air 09/30/24 09:26 Medical Decision Making MDM Narrative Medical decision making narrative: 49-year-old male present to the emergency department for evaluation for chest pain with associated shortness of breath. Patient is afebrile but does have a leukocytosis 11.0 and hemoglobin 11.9. Patient's INR is 1.0. Patient has a creatinine of 1.7 which is similar to baseline. Patient has a negative troponin and negative lipase. CTA was negative for pulmonary embolism but was positive for pneumonia. Patient was started on Rocephin and azithromycin. Ultrasound of the scrotum shows varicocele with no definitive mass. Delta troponin was not elevated. Patient is being discharged home with antibiotics for pneumonia and instructions to have follow-up with Urology Differential Diagnosis Differential Diagnosis: Pulmonary embolism, ACS, testicular mass, hydrocele, varicocele, pneumonia Vital Signs Vital Signs: Vital Signs Temperature 98.2 F 09/30/24 08:10 Pulse Rate 92 09/30/24 08:10 Respiratory Rate 20 09/30/24 08:10 Blood Pressure 131/78 09/30/24 08:10 Pulse Oximetry 98 09/30/24 08:10 Oxygen Delivery Room Air 09/30/24 08:10 Temperature 98.2 F 09/30/24 08:10 Pulse Rate 75 09/30/24 12:16 Respiratory Rate 16 09/30/24 12:16 Blood Pressure 100/65 09/30/24 12:16 Pulse Oximetry 95 09/30/24 12:16 Oxygen Delivery Room Air 09/30/24 09:26 Lab Data Lab results reviewed: Yes I reviewed the patient's lab results. 09/30/24 08:29 09/30/24 09:04 Labs: Lab Results 09/30/24 09/30/24 09/30/24 Range/Units 08:29 09:00 09:04 WBC 11.0 H (4.5-10.0) K/mm3 RBC 4.51 L (4.6-6.20) M/mm3 Hgb 11.9 L (14.0-18.0) g/dL Hct 38.0 L (42.0-52.0) % MCV 84.3 (80-100) fl MCH 26.4 (26-34) pg MCHC 31.3 L (32-36) g/dl RDW 15.9 H (11.5-14.5) % Plt Count 183 (150-375) k/mm3 MPV 10.8 H (7.4-10.4) fl Immature Gran % (Auto) 0.4 (0-0.5) % Neut % (Auto) 86.2 H (45.5-73.1) % Lymph % (Auto) 6.1 L (18.3-44.2) % Tyrrell % (Auto) 5.9 (2.6-8.5) % Eos % (Auto) 1.1 (0-4.4) % Baso % (Auto) 0.3 (0.2-1.2) % Lymph # (Auto) 0.67 L (0.9-3.2) K/mm3 Tyrrell # (Auto) 0.7 H (0.1-0.6) K/mm3 Eos # (Auto) 0.1 (0-0.3) K/mm3 Baso # (Auto) 0.0 (0.0-0.1) K/mm3 Abs Immat Gran (auto) 0.04 H (0.00-0.031) K/mm3 Absolute Neuts (auto) 9.5 H (1.3-6.7) K/mm3 Absolute Nucleated RBC 0.000 (0.0-0.012) K/mm3 Nucleated RBC % 0.0 (0.0-0.2) % PT 13.6 (11.1-14.7) Seconds INR 1.0 APTT 28.4 (22.3-36.8) Seconds Sodium 138 (137-145) mmol/L Potassium 4.6 (3.4-5.0) mmol/L Chloride 105 (98-107) mmol/L Carbon Dioxide 25 (22-30) mmol/L Anion Gap 8 (4-12) mmol/L BUN 27 H (9-20) mg/dL Creatinine 1.55 H 1.70 H (0.7-1.3) mg/dL Estim Creat Clear Calc 62 57 ml/min Estimated GFR 48 L 43 L (59 - ) Glucose 180 H (65-110) mg/dL Calcium 9.1 (8.4-10.2) mg/dL Total Bilirubin 0.5 (0.2-1.3) mg/dL AST 33 (17-59) U/L ALT 26 (6-50) U/L Alkaline Phosphatase 87 (38-126) U/L Troponin I < 0.012 (0.000-0.034) ng/mL Total Protein 6.7 (6.3-8.2) g/dL Albumin 3.8 (3.5-5.1) g/dL Lipase 82 (23-300) U/L /10/18 Range/Units 11:47 WBC (4.5-10.0) K/mm3 RBC (4.6-6.20) M/mm3 Hgb (14.0-18.0) g/dL Hct (42.0-52.0) % MCV (80-100) fl MCH (26-34) pg MCHC (32-36) g/dl RDW (11.5-14.5) % Plt Count (150-375) k/mm3 MPV (7.4-10.4) fl Immature Gran % (Auto) (0-0.5) % Neut % (Auto) (45.5-73.1) % Lymph % (Auto) (18.3-44.2) % Tyrrell % (Auto) (2.6-8.5) % Eos % (Auto) (0-4.4) % Baso % (Auto) (0.2-1.2) % Lymph # (Auto) (0.9-3.2) K/mm3 Tyrrell # (Auto) (0.1-0.6) K/mm3 Eos # (Auto) (0-0.3) K/mm3 Baso # (Auto) (0.0-0.1) K/mm3 Abs Immat Gran (auto) (0.00-0.031) K/mm3 Absolute Neuts (auto) (1.3-6.7) K/mm3 Absolute Nucleated RBC (0.0-0.012) K/mm3 Nucleated RBC % (0.0-0.2) % PT (11.1-14.7) Seconds INR APTT (22.3-36.8) Seconds Sodium (137-145) mmol/L Potassium (3.4-5.0) mmol/L Chloride (98-107) mmol/L Carbon Dioxide (22-30) mmol/L Anion Gap (4-12) mmol/L BUN (9-20) mg/dL Creatinine (0.7-1.3) mg/dL Estim Creat Clear Calc ml/min Estimated GFR (59 - ) Glucose (65-110) mg/dL Calcium (8.4-10.2) mg/dL Total Bilirubin (0.2-1.3) mg/dL AST (17-59) U/L ALT (6-50) U/L Alkaline Phosphatase (38-126) U/L Troponin I < 0.012 (0.000-0.034) ng/mL Total Protein (6.3-8.2) g/dL Albumin (3.5-5.1) g/dL Lipase (23-300) U/L Imaging Data Radiologist's impression: Impressions Scrotum Ultrasound 09/30/24 09:08 IMPRESSION: 1. Left varicocele which may account for the palpable abnormality of concern. No other abnormal masses identified. 2. Small bilateral hydroceles. Chest X-Ray 09/30/24 09:20 IMPRESSION: Findings concerning for pneumonia and bronchiolitis in appropriate clinical settings. Short-term follow-up chest radiograph is recommended after appropriate clinical therapy. ECG Data EKG #1: EKG Interpretation: normal rate, sinus rhythm, no ectopy, no ST changes, normal QRS and NL axis Discharge Plan Discharge Clinical Impression: Pneumonia, Varicocele Patient Disposition: Home Condition: Stable Instructions: Antibiotic Form, Testicle Pain (ED), Pneumonia (ED) Additional Instructions: Antibiotic as directed for pneumonia. Have close follow-up with Urology for your varicocele. Have close follow-up with your primary care physician for your pneumonia and for additional outpatient cardiac testing. If you have any worsening symptoms then please call or return to the emergency department. Patient Language: Sammarinese Prescriptions: New azithromycin 250 mg tablet See Rx Instructions .ROUTE .COMPLEX Qty: 6 0RF Rx Instructions: For 250 mg dose pack: take 500 mg today (day 1), then 250 mg for 4 days (days 2-5) amoxicillin-pot clavulanate 875-125 mg tablet 1 tablet PO Q12H 7 Days Qty: 14 0RF No Action tamsulosin [Flomax] 0.4 mg capsule 0.4 mg PO DAILY Qty: 14 0RF sulfamethoxazole-trimethoprim [Bactrim DS] 800-160 mg tablet 1 tablet PO Q12H Qty: 14 0RF Follow-up/Referrals: Michael Burgess MD [Physician] - PHYSICIAN NOT ON STAFF,NONSTAFF [Non-Staff] - Quality HEART score for chest pain patients History: slightly suspicious ECG: normal Age: > 45 and < 65 years Risk factors: 1 or 2 risk factors Troponin: < or = to 1x normal limit Heart score: 2
[2024-09-30 08:35] LABS: Hematocrit 38.0 % (42.0-52.0); Hemoglobin 11.9 g/dL (14.0-18.0); Immature Granulocyte Percent A 0.4 % (0-0.5); Lymphocytes Absolute Auto 0.67 K/mm3 (0.9-3.2); Mean Corpuscular HGB Conc 31.3 g/dl (32-36); Mean Corpuscular Hemoglobin 26.4 pg (26-34); Mean Corpuscular Volume 84.3 fl (80-100); Nucleated Red Blood Cells Absolute Auto 0.000 K/mm3 (0.0-0.012); Nucleated Red Blood Cells Perc 0.0 % (0.0-0.2); Platelet Count Result 183 k/mm3 (150-375); Red Blood Count 4.51 M/mm3 (4.6-6.20); White Blood Count 11.0 K/mm3 (4.5-10.0)
[2024-09-30 08:53] LABS: INR 1.0; Prothrombin Time 13.6 Seconds (11.1-14.7)
[2024-09-30 08:54] LABS: Partial Thromboplastin Time 28.4 Seconds (22.3-36.8)
[2024-09-30 09:05] LABS: Estimated CRCL calculation 57 ml/min; Estimated Glomerular Filt Rate 43
[2024-09-30 09:14] LABS: Alanine Aminotransferase 26 U/L (6-50); Albumin Level 3.8 g/dL (3.5-5.1); Alkaline Phosphatase 87 U/L (38-126); Anion Gap 8 mmol/L (4-12); Aspartate Amino Transferase 33 U/L (17-59); Bilirubin,Total 0.5 mg/dL (0.2-1.3); Blood Urea Nitrogen 27 mg/dL (9-20); Calcium 9.1 mg/dL (8.4-10.2); Carbon Dioxide 25 mmol/L (22-30); Chloride 105 mmol/L (98-107); Estimated CRCL calculation 62 ml/min; Estimated Glomerular Filt Rate 48; Glucose 180 mg/dL (65-110); Lipase 82 U/L (23-300); Potassium 4.6 mmol/L (3.4-5.0); Sodium 138 mmol/L (137-145); Total Protein 6.7 g/dL (6.3-8.2)
[2024-09-30] MEDS: ASPIRIN 81 MG CHEWABLE TABLET 324 MG PO (09:21)
[2024-09-30] MEDS: HYDROmorphone HCL INJ (*CRX) 2 MG/ML VIAL 0.5 MG IV PUSH (09:23)
[2024-09-30 09:26] LABS: Troponin I < 0.012 ng/mL (0.000-0.034)
[2024-09-30] MEDS: AZITHROMYCIN 250 MG TABLET 500 MG PO (10:54)
--- NOTE | 2024-09-30 11:35 | ECG_ITS ---
Test Date: 2024-09-30 11:39:49 Measurements Intervals [place] Rate: 75 P: 11 NE: 162 QRS: 30 QRSD: 96 T: 29 QT: 353 QTc: 395 Interpretive Statements SINUS RHYTHM Compared to ECG 09/30/2024 08:13:25 No significant changes Electronically Signed On 09-30-2024 22:16:24 CDT by Silvano Virk M.D.
[2024-09-30 12:13] LABS: Troponin I < 0.012 ng/mL (0.000-0.034)
== END 2024-09-30 12:30 | disposition home or self-care (01) ==
PROVIDERS: Emergency Provider Emergency Medicine
DX: J18.9 Pneumonia, unspecified organism (principal); I86.1 Scrotal varices; R07.9 Chest pain, unspecified; R06.02 Shortness of breath; Z85.850 Personal history of malignant neoplasm of thyroid; Z85.528 Personal history of other malignant neoplasm of kidney; E89.0 Postprocedural hypothyroidism; Z90.5 Acquired absence of kidney; F17.210 Nicotine dependence, cigarettes, uncomplicated
CPT/HCPCS: 36415; 71046; 71275; 76870; 80053; 83690; 84484; 85025; 85610; 85730; 93005; 93976; 96374; 99284; A9270; J1171; Q9967